=== PATIENT | male | born 1995 | race Two or more races ===

== ENCOUNTER 2023-07-15 15:24 | Emergency (ER) | payer SELFPAY ==
[2023-07-15 15:28] VITALS: PULSE 66; RESP 18; TEMP 36.7; O2SAT 99; BMI 25.8
[2023-07-15 15:33] VITALS: BP 134/90
--- NOTE | 2023-07-15 15:35 | US_ITS ---
The [address] [address] Patient Name: MELANI HUBER MRN: [id number] date: 1995 Sex: M Assigned Patient Location: ER Current Patient Location: Accession/Order Number: [id number] Exam Date: 07/15/2023 16:10 Report Date: 07/15/2023 17:00 At the request of: NANCY KWON Procedure: US scrotum PROCEDURE: US scrotum, 07/15/2023 4:10 PM EDT CLINICAL INDICATIONS: Right scrotal swelling COMPARISON: None TECHNIQUE: Scrotal sonogram, grayscale, color evaluation. FINDINGS: Right testicle: 3.7 x 2.5 x 3.7 cm. Left testicle: 4.2 x 2.3 x 2.7 cm. Right epididymis: 0.9 x 0.7 cm. Left epididymis 1.0 x 0.7 cm. There is homogeneous testicular echo pattern. A focal intratesticular abnormality is not evident. The epididymis is normal in morphology bilaterally. Trace fluid in the hemiscrotum is seen without significant hydrocele. DUPLEX SCROTAL VASCULATURE: There is intact flow within the epididymal and testicular tissue bilaterally by color-flow assessment. Arterial spectral tracing is identified from within. US/US scrotum IMPRESSION: 1. No sign of intratesticular or epididymal abnormality 2. Trace fluid in the hemiscrotum, no significant hydrocele 3. No sonographic sign of testicular torsion Electronically authenticated by: BUD SEVILLA Date: 07/15/2023 17:00
--- NOTE | 2023-07-15 15:35 | ED.MALEGU1 ---
HPI - Male Genitourinary General Chief complaint: Urogenital-Male Stated complaint: Testicular Pain Time Seen by Provider: 07/15/23 15:25 Source: family and friend Mode of arrival: walk-in Limitations: no limitations History of Present Illness HPI Narrative: Patient is a 27 year old male who presents to the ED for the evaluation of right testicle swelling for the last two days. History is provided by an [place]i speaking family member, patient is citizen of [place] speaking. He denies fevers, vomiting, dysuria or hematuria. No injury to the area. He is not concerned for STD exposure. No medications taken prior to arrival. He denies abdominal pain or flank pain. He denies any significant pain Related Data Previous Rx's Medication Instructions Recorded naproxen sodium 550 mg tablet 550 mg PO BID PRN pain #10 tabs 07/15/23 Allergies Allergy/AdvReac Type Severity Reaction Status Date / Time No Known Drug Allergies Allergy Verified 07/15/23 15:32 Review of Systems ROS Constitutional Denies: fever or chills Cardiovascular Denies: chest pain Respiratory Denies: shortness of breath Gastrointestinal Denies: abdominal pain, nausea or vomiting Genitourinary Reports: testicular pain and scrotal swelling; Denies: painful urination Musculoskeletal Denies: back pain Integumentary/Breast Denies: rash Neurological Denies: headache Endocrine Denies: excessive urination Allergic/Immunologic Denies: hives Exam Narrative Exam Narrative: Gen.: Awake, alert, in no distress Head: Normocephalic, atraumatic ENT: Moist mucous membranes Respiratory: No respiratory distress Gastrointestinal: Abdomen is soft, nondistended and nontender to palpation : Right testicle is minimally edematous compared to left, nontender, and low lying compared to left. No penile drainage or palpable hernia. No erythema or induration of the scrotum noted. exam performed with Caity Knowles RN at bedside throughout the duration of the exam Extremities: Moves extremities equally, no injuries noted Psych: Normal mood and affect Neuro: No focal neuro deficit Skin: Warm, dry, intact Constitutional Vital Signs, click to edit/add: Last Vital Signs Temp 98.0 F 07/15/23 15:28 Pulse 66 07/15/23 15:28 Resp 18 07/15/23 15:28 BP 134/90 07/15/23 15:33 Pulse Ox 99 07/15/23 15:28 O2 Del Method Room Air 07/15/23 15:28 Course Vital Signs Vital signs: Vital Signs Temperature 98.0 F 07/15/23 15:28 Pulse Rate 66 07/15/23 15:28 Respiratory Rate 18 07/15/23 15:28 Pulse Oximetry 99 07/15/23 15:28 Oxygen Delivery Method Room Air 07/15/23 15:28 Temperature 98.0 F 07/15/23 15:28 Pulse Rate 66 07/15/23 15:28 Respiratory Rate 18 07/15/23 15:28 Blood Pressure 134/90 07/15/23 15:33 Pulse Oximetry 99 07/15/23 15:28 Oxygen Delivery Method Room Air 07/15/23 15:28 MDM - Male Genitourinary MDM Narrative Medical decision making narrative: ultrasound with no evidence of acute abnormality, urine specimen with no evidence of urinary tract infection. Patient will be placed on an anti-inflammatory, his exam is grossly unremarkable. Folloow-up with urology and return to the Emergency Room if symptoms change or worsen. Medical Records Attestation: I reviewed the patient's medical records. Lab Data Attestation: I reviewed the patient's lab results. Labs: Lab Results 07/15/23 Range/Units 15:51 Urine Color Yellow (YELLOW) Urine Clarity Clear (CLEAR) Urine pH 6.5 (5.0-9.0) Ur Specific [place] 1.020 (1.005-1.025) Urine Protein Negative (NEG/TRACE) mg/dL Urine Glucose (UA) Negative (NEGATIVE) mg/dL Urine Ketones Negative (NEGATIVE) mg/dL Urine Occult Blood Negative (NEGATIVE) Urine Nitrite Negative (NEGATIVE) Urine Bilirubin Negative (NEGATIVE) Urine Urobilinogen 1.0 (0.2-1.0) EU/dL Ur Leukocyte Esterase Negative (NEGATIVE) Discharge Plan Discharge Chief Complaint: Urogenital-Male Clinical Impression: Swelling of right testicle Patient Disposition: Home, Self-Care Time of Disposition Decision: 16:37 Condition: Good Prescriptions / Home Meds: New naproxen sodium 550 mg tablet 550 mg PO BID PRN (Reason: pain) Qty: 10 0RF Print Language: Italian Instructions: Testicle Pain (ED) Stand Alone Forms: Portal Instructions Referrals: Caryl Servin MD [Physician] - 1 week Physician,Non-Staff, [Primary Care Provider] - 1 week
[2023-07-15 15:56] LABS: Bilirubin Urine NEGATIVE (NEGATIVE); Blood Urine NEGATIVE (NEGATIVE); Clarity Urine CLEAR (CLEAR); Color Urine YELLOW (YELLOW); Glucose Urine UA NEGATIVE (NEGATIVE); Ketones Urine NEGATIVE (NEGATIVE); Leukocyte Esterase Urine NEGATIVE (NEGATIVE); Nitrite Urine NEGATIVE (NEGATIVE); Protein Urine NEGATIVE (NEG/TRACE); pH Urine 6.5 (5.0-9.0)
[2023-07-15 15:57] LABS: Urine Microscopic Indicated NO
== END 2023-07-15 16:46 | disposition home or self-care (01) ==
PROVIDERS: Physician Assistant; Emergency Provider Emergency Medicine
DX: N50.89 Other specified disorders of the male genital organs (principal)
CPT/HCPCS: 76870; 81003; 99284